=== PATIENT | male | born 1940 | race Caucasian/White ===

== ENCOUNTER → 2019-12-10 | Outpatient (CLI) | payer BC ==
[2014-10-23 10:57] VITALS: BP 103/60
[~2019-12-10] MED LIST: LEVO500T59 PO; TRAM50TA PO
== END | disposition home or self-care (01) ==
LOC: LAB 13:49
PROVIDERS: ATTEND Surgery
DX: Z11.59 Encounter for screening for other viral diseases (principal)
CPT/HCPCS: U0003-CS

== ENCOUNTER → 2019-12-14 | Day surgery (SDC) | payer BC ==
[~2019-12-14] MED LIST changes: +DUTA0.5C PO; +LIDOCAINE 2% PF 5 ML VIAL. ONE; +MELO15TA23 PO; +PROPOFOL 10 MG/ML (20ML) VIAL. IV ONE; +TADA2.5T3 PO; +TADA5TAB12 PO; +ePHEDrine PF IN SALINE 50 MG/10 ML SYRINGE. IV ONE
[2019-12-14] MEDS: IV RINGERS,LACTATED 1000ML 1,000 ML IV SCH (07:00)
[2019-12-14 12:33] VITALS: BP 121/57
--- NOTE | 2019-12-17 21:04 | PATHOLOGY ---
[facility] Accession Number: [id number] . 01 Material submitted: . colon - POLYP AT 80CM . 01 Clinical history: . Colovesical fistula . 02 Diagnosis: Colon biopsy, polyp at 80.0 cm: - Tubular adenoma. . ([facility]:mm; 12/17/2019) [facility] 12/17/2019 1554 Local . 02 Comment: There is no evidence of high grade dysplasia or malignancy. . ([facility]:mm; 12/17/2019) . 02 Electronically signed: . Rupert Handley MD, Pathologist NPI- [id number] . 01 Gross description: . The specimen is received in formalin, labeled "Lino Goodrich, polyp at 80 cm". Received is a segment of pale blanc soft tissue measuring 0.4 cm in maximum dimensions. The specimen is submitted entirely in cassette A1. ([facility]; 12/14/2019) [facility] 12/14/2019 1737 Local . 02 Pathologist provided ICD-10: D12.6 . 02 CPT . 192121 Specimen Comment: A courtesy copy of this report has been sent to [phone], [phone] Specimen Comment: [id number] Specimen Comment: Report sent to / DR PERALTA Performed at: 01 [facility] [address], [place] [id number] MD Sam Garcia MD Phone: [phone] Performed at: 02 [facility] [address] [place], [place] [id number] MD Rupert Handley MD Phone: [phone]
== END | disposition home or self-care (01) ==
LOC: ENDOS 10:12
PROVIDERS: ATTEND Surgery
DX: Z12.11 Encounter for screening for malignant neoplasm of colon (principal); D12.2 Benign neoplasm of ascending colon; F17.210 Nicotine dependence, cigarettes, uncomplicated; Z85.46 Personal history of malignant neoplasm of prostate; Z98.49 Cataract extraction status, unspecified eye; Z96.1 Presence of intraocular lens; Z88.8 Allergy status to other drugs, medicaments and biological substances; Z79.899 Other long term (current) drug therapy
CPT/HCPCS: 45385; 88305; J2704; 45380